=== PATIENT | female | born 1970 | race Caucasian/White ===

== ENCOUNTER 2023-01-19 11:12 | Emergency (ER) | payer MEDICAID ==
[2023-01-19] MEDS ORDERED: Norepinephrine Bit/D5W Premix 250 ML ONE (11:29)
[2023-01-19] MEDS ORDERED: Sodium Chloride 0.9% 10 ML Syringe FLUSH PRN (11:33)
[2023-01-19] MEDS ORDERED: Norepinephrine Bit/D5W Premix 250 ML IV SCH (11:45)
[2023-01-19] MEDS ORDERED: cefTRIAXone 1 GM Vial IVPUSH ONE (12:05)
[2023-01-19 12:10] LABS: HEMATOCRIT 45.3 % (33.0-47.0); HEMOGLOBIN 16.3 g/dL (12.0-16.0); MEAN CORPUSCULAR HEMOGLOBIN 32.9 pg (26.0-32.0); MEAN CORPUSCULAR VOLUME 91.5 fL (78.0-93.0); PLATELET COUNT,PLT 563 x10^3/uL (130-400); RED BLOOD CELL COUNT 4.95 x10^6/uL (4.00-5.50)
[2023-01-19 12:16] LABS: WHITE BLOOD CELL COUNT,WBC 58.1 x10^3/uL (4.0-10.0)
[2023-01-19] MEDS ORDERED: VANCOmycin 1.75 GM/350 ML 1.75 GM in Premix Bag 1 BAG IV ONE (12:20)
[2023-01-19 12:27] LABS: ANISOCYTOSIS 1+ SLIGHT; BAND PERCENT MAN 6 % (0-6); CREATININE 1.4 mg/dL (0.55-1.02); ESTIMATED GFR 46 mL/min (>=60); HYPERSEGMENTED NEUTROPHILS FEW; INR 1.7 (2.0-3.5); LYMPHOCYTES ABSOLUTE MAN 5.8 x10^3/uL (1.0-4.8); LYMPHOCYTES PERCENT MAN 6 % (25-50); METAMYELOCYTE PERCENT MAN 2 % (0); MONOCYTES ABSOLUTE MAN 2.9 x10^3/uL (0.0-0.8); MONOCYTES PERCENT MAN 5 % (2-11); NEUTROPHILS ABSOLUTE MAN 48.2 x10^3/uL (1.8-7.7); NRBC MANUAL 3 /100WBC (0-5); PLATELET COUNT ESTIMATE INCREASED; POLYCHROMASIA RARE; PROTHROMBIN TIME 18.1 SEC (9.5-12.2); SEG NEUTROPHILS PERCENT MAN 77 % (50-80); TARGET CELLS 1+ SLIGHT
[2023-01-19 12:28] LABS: TOXIC GRANULATION 1+ SLIGHT; VACUOLATED NEUTROPHILS 1+ SLIGHT
[2023-01-19 12:30] LABS: POTASSIUM,K 3.3 mmol/L (3.5-5.1); SODIUM,NA 125 mmol/L (136-145)
[2023-01-19 12:35] LABS: LACTIC ACID 5.4 mmol/L (0.4-2.0)
[2023-01-19] MEDS ORDERED: Tranexamic Acid 1,000 MG in Sodium Chloride 0.9% 100 ML IV ONE ×2 (12:38→12:40)
[2023-01-19 12:44] LABS: ALANINE AMINOTRANSFERASE,ALT 39 U/L (14-59); ALKALINE PHOSPHATASE 749 U/L (46-116); ASPARTATE AMNIOTRANSFERASE,AST 158 U/L (15-37); BILIRUBIN TOTAL 4.2 mg/dL (0.2-1.0); BLOOD UREA NITROGEN,BUN 48 mg/dL (7-18); CALCIUM 7.6 mg/dL (8.5-10.1); CARBON DIOXIDE,CO2 29 mmol/L (21-32); CHLORIDE,CL 83 mmol/L (98-107); GLUCOSE RANDOM 207 mg/dL (70-99); PRO B-TYPE NATRIUR PEPT,BNPPRO 2435 pg/mL (<=125)
[2023-01-19 12:52] LABS: ANION GAP 16.3 mmol/L (5-15)
[2023-01-19 13:02] LABS: APPEARANCE,URINE SLIGHTLY CLOUDY (CLEAR); BILIRUBIN,URINE LARGE (NEGATIVE); COLOR,URINE DARK YELLOW (YELLOW); GLUCOSE,URINE NEGATIVE (NEGATIVE); KETONES,URINE TRACE mg/dL (NEGATIVE); LEUKOCYTE ESTERASE,URINE SMALL (NEGATIVE); NITRITE,URINE NEGATIVE (NEGATIVE); OCCULT BLOOD,URINE NEGATIVE (NEGATIVE); PROTEIN,URINE 30 mg/dL (NEGATIVE); UROBILINOGEN,URINE 0.2 EU/dL (0.2)
[2023-01-19 13:08] LABS: BACTERIA,URINE FEW /HPF (NOT SEEN); GRANULAR CASTS,URINE FEW; HYALINE CASTS,URINE MODERATE; MUCUS,URINE FEW /LPF (NOT SEEN)
[2023-01-19 13:09] LABS: SQUAMOUS EPITHELIAL CELLS,UR MODERATE /HPF (NOT SEEN)
== END 2023-01-19 13:30 | disposition short-term general hospital (02) ==
LOC: VM.ED 11:12
DX: S36.029A Unspecified contusion of spleen, initial encounter (principal); A41.9 Sepsis, unspecified organism; R65.21 Severe sepsis with septic shock; I95.89 Other hypotension; E87.1 Hypo-osmolality and hyponatremia; R74.02 Elevation of levels of lactic acid dehydrogenase [LDH]; Z87.01 Personal history of pneumonia (recurrent); Z86.14 Personal history of Methicillin resistant Staphylococcus aureus infection; Z88.2 Allergy status to sulfonamides; Z88.8 Allergy status to other drugs, medicaments and biological substances; X58.XXXA Exposure to other specified factors, initial encounter
CPT/HCPCS: 36415; 36430; 71045; 74176; 80053; 81001; 83605; 83880; 84484; 85018; 85025; 85610; 86850; 86900; 86901; 86920; 86922; 87040; 87086; 87088; 87186; 99285; P9016